=== PATIENT | female | born 1995 | race Two or more races ===

== ENCOUNTER 2024-04-24 16:17 | Emergency (ER) | payer OTHER, SELFPAY ==
[2024-04-24 16:33] VITALS: BP 120/79; PULSE 91; TEMP 36.8; O2SAT 97; BMI 27.9
--- NOTE | 2024-04-24 16:58 | ED.BACK1 ---
HPI HPI - Back Pain/Injury General Chief Complaint: Back Pain/Injury Stated Complaint: BACK PAIN Time Seen by Provider: 04/24/24 16:21 Source: patient and friend Mode of arrival: walk-in Limitations: language barrier History of Present Illness HPI Narrative: 28-year-old female presents for midline lower back pain. She has had no trauma and it does not seem to radiate. No dysuria or hematuria and her last period was a week ago. She does a lot of heavy lifting and twisting at work. She has had it for a few days. Related Data Home Medications ?Medication ?Instructions ?Recorded ?Confirmed norgestimate 0.25 mg-ethinyl 1 tab PO DAILY 04/24/24 04/24/24 estradiol 35 mcg tablet (Sprintec (28)) Previous Rx's ?Medication ?Instructions ?Recorded ibuprofen 800 mg tablet 800 mg PO Q8H PRN pain #20 tabs 04/24/24 methocarbamol 500 mg tablet 500 mg PO Q8H PRN pain #20 tabs 04/24/24 Allergies Allergy/AdvReac Type Severity Reaction Status Date / Time No Known Drug Allergies Allergy Verified 04/24/24 16:37 Opioid HPI Opioid Management Most Recent Opioid Data: Last Pain Scale 6 04/24/24 16:42 Review of Systems ROS Narrative A ten point review of systems is negative except as noted above. Exam Narrative Exam Narrative: Nurses note and vital signs reviewed and patient is not hypoxic. General: The patient appears well and in no apparent distress. Patient is resting comfortably on cart, sitting up. Skin: Warm, dry, no pallor noted. There is no rash noted. Head: Normocephalic, atraumatic Eye: Normal conjunctiva, no drainage Ears, Nose, Mouth, and Throat: oral mucosa is moist. Nares patent. Cardiovascular: Regular Rate and Rhythm Respiratory: Patient is in no distress, no accessory muscle use, lungs are clear to auscultation, no wheezing, rales or rhonchi Back: Tenderness at the midline in the low back. No bruise or rash or CVA tenderness GI: Soft and nontender Musculoskeletal: The patient has no evidence of calf tenderness, no pitting edema, symmetrical pulses noted bilaterally Neurological: Awake and alert Psychiatric: Cooperative Constitutional Vital Signs, click to edit/add: Last Vital Signs Temp 98.3 F 04/24/24 16:33 Pulse 91 H 04/24/24 16:33 Resp 16 04/24/24 16:33 BP 120/79 04/24/24 16:33 Pulse Ox 97 04/24/24 16:33 O2 Del Method Room Air 04/24/24 16:33 Course Vital Signs Vital signs: Vital Signs Temperature 98.3 F 04/24/24 16:33 Pulse Rate 91 H 04/24/24 16:33 Respiratory Rate 16 04/24/24 16:33 Blood Pressure 120/79 04/24/24 16:33 Pulse Oximetry 97 04/24/24 16:33 Oxygen Delivery Method Room Air 04/24/24 16:33 Temperature 98.3 F 04/24/24 16:33 Pulse Rate 91 H 04/24/24 16:33 Respiratory Rate 16 04/24/24 16:33 Blood Pressure 120/79 04/24/24 16:33 Pulse Oximetry 97 04/24/24 16:33 Oxygen Delivery Method Room Air 04/24/24 16:33 MDM - Back Pain/Injury MDM Narrative Medical decision making narrative: test and urinalysis are negative. My clinical impression is that she has muscle strain and should be treated with Robaxin and ibuprofen. Treatment diagnosis and follow-up were discussed with the patient. Differential Diagnosis Differential diagnosis: Likely strain of lumbar region and other (UTI) Lab Data Attestation: I reviewed the patient's lab results. Labs: Lab Results 04/24/24 Range/Units 16:49 Urine Color Yellow (YELLOW) Urine Clarity Clear (CLEAR) Urine pH 6.0 (5.0-9.0) Ur Specific [place] 1.025 (1.005-1.025) Urine Protein Trace (NEG/TRACE) mg/dL Urine Glucose (UA) Negative (NEGATIVE) mg/dL Urine Ketones Negative (NEGATIVE) mg/dL Urine Occult Blood Negative (NEGATIVE) Urine Nitrite Negative (NEGATIVE) Urine Bilirubin Negative (NEGATIVE) Urine Urobilinogen 1.0 (0.2-1.0) EU/dL Ur Leukocyte Esterase Negative (NEGATIVE) Urine RBC 0-2 (0-2) #/HPF Urine WBC 0-2 A (NONE SEEN) #/HPF Ur Squamous Epith Cells Many A (NONE/RARE) #/LPF Urine Crystals None seen (None Seen) #/HPF Urine Bacteria Trace A (NONE SEEN) #/HPF Urine Casts None seen (NONE SEEN) #/LPF Urine Mucus Large A (NONE SEEN) Ur Culture Indicated? No Urine HCG, Qual Negative (NEGATIVE) Discharge Plan Discharge Chief Complaint: Back Pain/Injury Clinical Impression: Strain of lumbar region Patient Disposition: Home, Self-Care Time of Disposition Decision: 17:27 Condition: Good Mode of Transportation: Private Vehicle Prescriptions / Home Meds: New methocarbamol 500 mg tablet 500 mg PO Q8H PRN (Reason: pain) Qty: 20 0RF ibuprofen 800 mg tablet 800 mg PO Q8H PRN (Reason: pain) Qty: 20 0RF No Action norgestimate-ethinyl estradiol [Sprintec (28)] 0.25-35 mg-mcg tablet 1 tab PO DAILY Print Language: Portuguese Instructions: Low Back Strain (ED) Referrals: Physician,Non-Staff, MD [Primary Care Provider] - 1 week
[2024-04-24 17:15] LABS: Bilirubin Urine NEGATIVE (NEGATIVE); Blood Urine NEGATIVE (NEGATIVE); Clarity Urine CLEAR (CLEAR); Color Urine YELLOW (YELLOW); Glucose Urine UA NEGATIVE (NEGATIVE); Ketones Urine NEGATIVE (NEGATIVE); Leukocyte Esterase Urine NEGATIVE (NEGATIVE); Nitrite Urine NEGATIVE (NEGATIVE); Protein Urine TRACE mg/dL (NEG/TRACE); Specific Gravity Urine 1.025 (1.005-1.025)
[2024-04-24 17:17] LABS: HCG Qualitative Urine* NEGATIVE (NEGATIVE); Internal Control Within Normal Limits
[2024-04-24 17:24] LABS: WBC Urine 0-2 #/HPF (NONE SEEN)
[2024-04-24 17:25] LABS: Bacteria Urine TRACE #/HPF (NONE SEEN); Cast Seen? NONE SEEN #/LPF (NONE SEEN); Crystals Seen? None Seen #/HPF (None Seen); Mucus Urine LARGE (NONE SEEN); RBC Urine 0-2 #/HPF (0-2); Squamous Epithelial Cell Urine MANY #/LPF (NONE/RARE); Urine Culture Indicated NO
[2024-04-24 17:42] VITALS: BP 128/87; PULSE 80; O2SAT 99
== END 2024-04-24 17:42 | disposition home or self-care (01) ==
PROVIDERS: Emergency Provider Emergency Medicine
DX: S39.012A Strain of muscle, fascia and tendon of lower back, initial encounter (principal); X58.XXXA Exposure to other specified factors, initial encounter
CPT/HCPCS: 81001; 84703; 99283

== ENCOUNTER 2024-10-07 11:57 | Emergency (ER) | payer OTHER, SELFPAY ==
[2024-10-07 12:16] VITALS: BP 117/73; PULSE 94; TEMP 36.8; O2SAT 99; BMI 31.8
[2024-10-07] MEDS: ACETAMINOPHEN 325 MG TABLET 650 MG PO (12:56)
[2024-10-07 13:06] LABS: Influenza Virus A Antigen Negative; Influenza Virus B Antigen Negative; Internal Control Within Normal Limits; SARS-CoV-2 Ag NEGATIVE (NEGATIVE)
--- NOTE | 2024-10-07 13:54 | ED_ITS ---
HPI - URI/Sore Throat General Chief Complaint: Upper Respiratory Infection Stated Complaint: COUGH - 17 WEEKS PREG Time Seen by Provider: 10/07/24 12:34 Source: patient Limitations: no limitations History of Present Illness HPI Narrative: The patient history as well as physical exam and planning all done with the cloth carrier help The patient is 17 weeks presenting to us with a cough and right sided upper chest wall pain that comes whenever she is coughing She is also complaining of diarrhea and generalized body ache Related Data Previous Rx's ?Medication ?Instructions ?Recorded acetaminophen 325 mg tablet 325 mg PO Q6H PRN fever or pain 10/07/24 (Tylenol) #20 tabs guaifenesin 600 mg tablet, 600 mg PO BID PRN cough #10 tabs 10/07/24 extended release 12 hr (Mucinex) Allergies Allergy/AdvReac Type Severity Reaction Status Date / Time No Known Drug Allergies Allergy Verified 04/24/24 16:37 Review of Systems ROS Status of ROS 10 or more systems reviewed and unremark able except as noted in history and below PFSH PFSH Social History Little interest or pleasure in doing things: not at all Feeling down, depressed, or hopeless: not at all Exam Narrative Exam Narrative: Nurses notes and vital signs reviewed and patient is not hypoxic. General: Well-appearing and in no apparent distress. Skin: Warm, dry, no pallor noted. No rash. Head: Normocephalic, atraumatic. Neck: Supple, non-tender. Eye: Pupils are equal, round and EOMI. No scleral icterus. Ears, Nose, Mouth, and Throat: TM are clear, no nasal mucosal hypertrophy. Oral mucosa is moist, no posterior oropharynx erythema, uvula is mid-line Cardiovascular: Regular Rate and Rhythm without murmur, gallop or rub. Respiratory: No accessory muscle use or respiratory distress. Lungs are clear to auscultation, no wheezing, rales or rhonchi Chest Wall: no tenderness Back: No midline thoracic or lumbar vertebral tenderness. No CVA tenderness Musculoskeletal: normal ROM, no calf or popliteal tenderness, no lower extremity edema/swelling GI: Abdomen is soft, non-distended. Normal bowel sounds. No masses appreciated. No tenderness to palpation. No rebound, guarding, or rigidity noted. Neurological: A&O x4. No cranial nerve dysfunction observed. No truncal ataxia. Moves all extremities. Sensation intact. Psychiatric: Cooperative and interactive. Normal mood and affect. Constitutional Vital Signs, click to edit/add: Last Vital Signs Temp 98.3 F 10/07/24 12:16 Pulse 94 H 10/07/24 12:16 Resp 18 10/07/24 12:16 BP 117/73 10/07/24 12:16 Pulse Ox 99 10/07/24 12:16 O2 Del Method Room Air 10/07/24 12:16 Course Vital Signs Vital signs: Vital Signs Temperature 98.3 F 10/07/24 12:16 Pulse Rate 94 H 10/07/24 12:16 Respiratory Rate 18 10/07/24 12:16 Blood Pressure 117/73 10/07/24 12:16 Pulse Oximetry 99 10/07/24 12:16 Oxygen Delivery Method Room Air 10/07/24 12:16 Temperature 98.3 F 10/07/24 12:16 Pulse Rate 94 H 10/07/24 12:16 Respiratory Rate 18 10/07/24 12:16 Blood Pressure 117/73 10/07/24 12:16 Pulse Oximetry 99 10/07/24 12:16 Oxygen Delivery Method Room Air 10/07/24 12:16 MDM - URI/Sore Throat MDM Narrative Medical decision making narrative: The patient flu and COVID test are negative she was treated in the ER with Tylenol After reviewing Robitussin the patient is safe to go home with the Mucinex as needed as she is and it is safe The patient also to continue hydration The patient is to follow up with primary care physician in next 2-3 days or to return to the emergency department should any of the signs or symptoms worsen or new symptoms develop. The patient agrees with the following Diagnosis and Treatment plan and the patient will be discharged home. Lab Data Labs: Lab Results 10/07/24 Range/Units 12:40 Influenza Type A Ag Negative Influenza Type B Ag Negative SARS-CoV-2 Ag (CV2AG) Negative (NEGATIVE) Discharge Plan Discharge Chief Complaint: Upper Respiratory Infection Clinical Impression: Upper respiratory infection, Bronchitis Patient Disposition: Home, Self-Care Time of Disposition Decision: 13:54 Condition: Good Mode of Transportation: Private Vehicle Prescriptions / Home Meds: New guaifenesin [Mucinex] 600 mg tablet extended release 12hr 600 mg PO BID PRN (Reason: cough) Qty: 10 0RF acetaminophen [Tylenol] 325 mg tablet 325 mg PO Q6H PRN (Reason: fever or pain) Qty: 20 0RF Print Language: Iranian Instructions: Pleurisy (DC), Acute Bronchitis (ED) Referrals: Physician,Non-Staff, MD [Primary Care Provider] - 1 week Discharge Date/Time: 10/07/24 14:05
== END 2024-10-07 14:05 | disposition home or self-care (01) ==
PROVIDERS: Emergency Provider Emergency Medicine
DX: J06.9 Acute upper respiratory infection, unspecified (principal); J40 Bronchitis, not specified as acute or chronic; R05.9 Cough, unspecified; R07.89 Other chest pain; R19.7 Diarrhea, unspecified; O26.892 Other specified pregnancy related conditions, second trimester; Z3A.17 17 weeks gestation of pregnancy
CPT/HCPCS: 87804; 87811; 99283